=== PATIENT | female | born 1985 | race Caucasian/White ===

== ENCOUNTER 2023-11-28 06:26 | Outpatient (OUT) | payer OTHER, SELFPAY ==
[2023-11-28 07:59] LABS: Thyroid Stimulating Hormone 1.823 uIU/mL (0.358-3.740)
[2023-11-28 09:32] LABS: Free T4 1.04 ng/dL (0.76-1.46)
[2023-11-29 08:12] LABS: DHEA-Sulfate 98.2 ug/dL (57.3-279.2); FSH 7.8 mIU/mL (.); Progesterone 0.3 ng/mL (.); Prolactin 13.9 ng/mL (4.8-33.4)
[2023-12-09 00:07] LABS: Free Testosterone(Direct) 0.6 pg/mL (0.0-4.2); Testosterone 20 ng/dL (8-60)
== END 2023-11-28 06:27 | disposition home or self-care (01) ==
LOC: LAB 06:29
PROVIDERS: PCP Family Medicine
DX: R61 Generalized hyperhidrosis (principal); R68.82 Decreased libido
CPT/HCPCS: 36415; 82306; 82533; 82627; 82670; 83001; 84144; 84146; 84402; 84403; 84439; 84443

== ENCOUNTER 2023-12-22 13:25 | Outpatient (OUT) | payer OTHER, SELFPAY ==
--- NOTE | 2023-12-22 13:31 | XR_ITS ---
[address] [address] Patient Name: HALI FRASER MRN: [id number] date: 1985 Sex: F Assigned Patient Location: [facility] Current Patient Location: Accession/Order Number: [id number] Exam Date: 12/22/2023 13:38 Report Date: 12/23/2023 06:55 At the request of: TONY FRANCO Procedure: XR femur LT 2V PROCEDURE: XR femur LT 2V COMPARISON: None. HISTORY: Left Thigh Pain M79.652 FINDINGS: BONES:No fracture, acute abnormality, or significant arthropathy. SOFT TISSUES:Negative. No visible soft tissue swelling. EFFUSION:None visible. OTHER: Negative. XR/XR femur LT 2V IMPRESSION: No acute radiographic abnormality Electronically authenticated by: SUDEEP CR Date: 12/23/2023 06:55
== END 2023-12-22 13:26 | disposition home or self-care (01) ==
LOC: RAD 13:26
PROVIDERS: PCP Family Medicine; Visit Provider Physician Assistant
DX: M79.652 Pain in left thigh (principal)
CPT/HCPCS: 73552

== ENCOUNTER 2024-08-04 09:00 | Outpatient (OUT) | payer OTHER, SELFPAY ==
--- NOTE | 2024-08-04 09:00 | RT_ITS ---
[facility] Test Date: 2024-08-04 Pat Name: HALI FRASER Department: Room: - Gender: Female Fitness Teacher: Jessica Beltran RRT : 1985 Requested By: [id number] Order Number: [id number] Reading MD: Raffi Gilliland Interpretive Statements Pulmonary function testing was completed according to ATS criteria. Findings were considered accurate and reproducible. No bronchodilator was administered due to normal spirometric values. Spirometry: -FEV1/FVC: Normal @ 84% -FEV1: Normal @ 85% -FVC: Normal @ 83% Lung volumes by plethysmography: -RV: Increased @ 133% -TLC: Normal @ 100% Diffusion capacity: -DLCO: Normal @ 92% when corrected for Hb 12.9g/dL Flow-volume loop: -Normal shape Impressions: -Essentially normal PFT. If asthma remains in the differential, may consider methacholine challenge testing. Clinical correlation required. Electronically Signed On 08-04-2024 17:43:12 EDT by Raffi Gilliland
--- OUTSIDE RECORDS SUMMARY | 2024-08-04 09:03 | XMS_ITS | CCD ---
Author Organization [facility] Care Team Providers Care Tool Room Attendant Name Role Phone Jenni Blakely Unavailable Unavailable Jenni Blakely Unavailable Unavailable HEMEYER, DANIELA Unavailable Unavailable ROSS, ESPERANZA MARISELA Attending Unavailable ROSS, ESPERANZA MARISELA Admitting Unavailable ROSS, ESPERANZA MARISELA Primary Care Unavailable ESPERANZA SEYMOUR Consulting Unavailable DEVAUGHN, DR PIÑA Admitting Unavailable DEVAUGHN, DR PIÑA Consulting Unavailable DEVAUGHN, DR PIÑA Attending Unavailable ROSS, ESPERANZA MARISELA Primary Care Unavailable CURLY GRIGSBY Attending Unavailable HEMMER, TONY Garcia Attending Unavailable LOPEZ, CHARLOTTE Attending Unavailable HEMMER, TONY Garcia Referring Unavailable GALE, MICHELLE Attending Unavailable HEMMER, TONY Garcia Referring Unavailable TATTERSMENDOZA SILVA Attending Unavailable HEMMER, TONY Garcia Referring Unavailable GALE, MICHELLE Attending Unavailable HEMMER, TONY Garcia Referring Unavailable LOPEZ, CHARLOTTE Attending Unavailable HEMMER, TONY Garcia Referring Unavailable LOPEZ, CHARLOTTE Attending Unavailable HEMMER, TONY Garcia Referring Unavailable GALE, MICHELLE Attending Unavailable HEMMER, TONY Garcia Referring Unavailable HEMMER, TONY Garcia Attending Unavailable HEMMER, TONY Garcia Attending Unavailable Problems Active Problems Problem Classification Problem Date Documented Da te Episodic/Chronic Unclassified (3 sources) CONTACT W/AND (SUSP) EXPOS COVID-19; Translations: [CONTACT W/AND (SUSP) EXPOS COVID-19] Onset: 09-15-2021 Past or Other Problems Problem Classification Problem Date Documented Da te Episodic/Chronic Unclassified (1 source) CONTACT W/AND (SUSP) EXPOS COVID-19; Translations: [CONTACT W/AND (SUSP) EXPOS COVID-19] Onset: 09-11-2021 Results Test Name Value Interpretation Reference Range Facil ity [facility] CBC AUTO DIFFon 06-13-2022 BASO # 0.0 103/ul Normal 0.0-0.1 [facility] Comment on above: Performed By: #### [facility] #### [facility] [address] [place] [address] Dr. Sarah Monge Basophils/100 WBC (Bld) 1.1 % Normal 0.2-2.0 [facility] Comment on above: Performed By: #### H FPFCBC #### [facility] [address] [place] [address] Dr. Sarah Monge EO # 0.2 103/ul Normal 0.0-0.7 [facility] Comment on above: Performed By: #### H FPFCBC #### [facility] [address] [place] [address] Dr. Sarah Monge Eosinophils/100 WBC (Bld) 4.0 % Normal 0.9-7.0 [facility] Comment on above: Performed By: #### H FPFCBC #### [facility] [address] [place] [address] Dr. Sarah Monge Erythrocyte distribution width (RBC) [Ratio] 12.4 % Normal 11.0-15.0 [facility] Comment on above: Performed By: #### H FPFCBC #### [facility] [address] [place] [address] Dr. Sarah Monge Hematocrit (Bld) [Volume fraction] 39.0 % Normal 36.0-48.0 [facility] Comment on above: Performed By: #### H FPFCBC #### [facility] [address] [place] [address] Dr. Sarah Monge Hemoglobin (Bld) [Mass/Vol] 12.8 g/dL Normal 12.0-16.0 [facility] Comment on above: Performed By: #### H FPFCBC #### [facility] [address] [place] [address] Dr. Sarah Monge IG # 0.00 10e3/ul Normal 0.00-0.03 [facility] Comment on above: Performed By: #### H FPFCBC #### [facility] [address] [place] [address] Dr. Sarah Monge IG % 0.0 % Normal 0.0-0.5 [facility] Comment on above: Performed By: #### H FPFCBC #### [facility] [address] [place] [address] Dr. Sarah Monge LYMPH # 1.1 103/ul Critically low 1.2-3.8 [facility] Comment on above: Performed By: #### H FPFCBC #### [facility] [address] [place] [address] Dr. Sarah Monge Lymphocytes/100 WBC (Bld) 29.6 % Normal 20.5-60.0 [facility] Comment on above: Performed By: #### H FPFCBC #### [facility] [address] [place] [address] Dr. Sarah Monge MCH (RBC) [Entitic mass] 30.2 pg Normal 26.7-34.0 [facility] Comment on above: Performed By: #### H FPFCBC #### [facility] [address] [place] [address] Dr. Sarah Monge MCHC (RBC) [Mass/Vol] 32.8 g/dL Normal 29.9-35.2 [facility] Comment on above: Performed By: #### H FPFCBC #### [facility] [address] [place] [address] Dr. Sarah Monge MCV (RBC) [Entitic vol] 92.0 fL Normal 81.0-99.0 [facility] Comment on above: Performed By: #### H FPFCBC #### [facility] [address] [place] [address] Dr. Sarah Monge MONO # 0.3 103/ul Normal 0.3-0.8 [facility] Comment on above: Performed By: #### H FPFCBC #### [facility] [address] [place] [address] Dr. Sarah Monge Monocytes/100 WBC (Bld) 8.5 % Normal 1.7-12.0 [facility] Comment on above: Performed By: #### H FPFCBC #### [facility] [address] [place] [address] Dr. Sarah Monge NEUT # 2.2 103/ul Normal 1.4-6.5 [facility] Comment on above: Performed By: #### H FPFCBC #### [facility] [address] [place] [address] Dr. Sarah Monge Neutrophils/100 WBC (Bld) 56.8 % Normal 43.0-75.0 [facility] Comment on above: Performed By: #### H FPFCBC #### [facility] [address] [place] [address] Dr. Sarah Monge Platelet mean volume (Bld) [Entitic vol] 12.2 fL Normal 9.5-13.5 [facility] Comment on above: Performed By: #### H FPFCBC #### [facility] [address] [place] [address] Dr. Sarah Monge PLT 208 103/ul Normal 150-450 [facility] Comment on above: Performed By: #### H FPFCBC #### [facility] [address] [place] [address] Dr. Sarah Monge RBC 4.24 106/ul Normal 4.20-5.40 [facility] Comment on above: Performed By: #### H FPFCBC #### [facility] [address] [place] [address] Dr. Sarah Monge WBC 3.8 103/ul Critically low 4.0-11.0 [facility] Comment on above: Performed By: #### H FPFCBC #### [facility] [address] [place] [address] Dr. Sarah Monge [facility] PROFILEon 022 Albumin [Mass/Vol] 4.2 g/dL Normal 3.4-5.0 [facility] Comment on above: Performed By: #### H FPF #### [facility] [address] [place] [address] Dr. Sarah Monge Albumin/Globulin [Mass ratio] 1.3 {ratio} Normal [facility] Comment on above: Performed By: #### H FPF #### [facility] [address] [place] [address] Dr. Sarah Monge ALP [Catalytic activity/Vol] 60 U/L Normal 46-116 [facility] Comment on above: Performed By: #### H FPF #### [facility] [address] [place] [address] Dr. Sarah Monge ALT [Catalytic activity/Vol] 29 U/L Normal 14-59 [facility] Comment on above: Performed By: #### H FPF #### [facility] [address] [address] [address] Sarah Monge AST [Catalytic activity/Vol] 21 U/L Normal 15-37 [facility] Comment on above: Performed By: #### H FPF #### [facility] [address] [place] [address] Dr. Sarah Monge Bilirubin [Mass/Vol] 0.5 mg/dL Normal 0.2-1.0 [facility] Comment on above: Performed By: #### H FPF #### [facility] [address] [place] [address] Dr. Sarah Monge Calcium [Mass/Vol] 8.6 mg/dL Normal 8.5-10.1 [facility] Comment on above: Performed By: #### H FPF #### [facility] [address] [place] [address] Dr. Sarah Monge Chloride [Moles/Vol] 102 mmol/L Normal 98-107 [facility] Comment on above: Performed By: #### H FPF #### [facility] [address] [place] [address] Dr. Sarah Monge CHOL-HDL RATIO NORM SEE BELOW Normal [facility] Comment on above: Result Comment: 3.3 - 4.4 LOW RISK 4.4 - 7.1 AVERAGE RISK 7.1 - 11.0 MODERATE RISK >11.0 HIGH RISK Performed By: #### H FPF #### [facility] [address] [place] [address] Dr. Sarah Monge Cholesterol [Mass/Vol] 168 mg/dL Normal <=200 [facility] Comment on above: Performed By: #### H FPF #### [facility] [address] [address] [address] Sarah Monge Cholesterol in HDL [Mass/Vol] 77 mg/dL Critically high 40-60 [facility] Comment on above: Performed By: #### H FPF #### [facility] [address] [address] [address] Sarah Monge Cholesterol in LDL [Mass/Vol] 84.0 mg/dL Normal [facility] Comment on above: Performed By: #### H FPF #### [facility] [address] [address] [address] Sarah Monge Cholesterol.total/C holesterol in HDL [Mass ratio] 2.2 {ratio} Normal [facility] Comment on above: Performed By: #### H FPF #### [facility] [address] [address] [address] Sarah Monge CO2 [Moles/Vol] 29.1 mmol/L Normal 21.0-32.0 [facility] Comment on above: Performed By: #### H FPF #### [facility] [address] [place] [address] Dr. Sarah Monge Creatinine [Mass/Vol] 0.63 mg/dL Normal 0.55-1.02 [facility] Comment on above: Performed By: #### H FPF #### [facility] [address] [address] [address] Sarah Monge Globulin (S) [Mass/Vol] 3.2 g/dL Normal [facility] Comment on above: Performed By: #### H FPF #### [facility] [address] [address] [address] Sarah Monge Glucose [Mass/Vol] 81 mg/dL Normal 74-106 [facility] Comment on above: Performed By: #### H FPF #### [facility] [address] [address] [address] Sarah Monge HDL NORMAL > or = 60 mg/dl - LO W CARDIOVASCULAR RISK <40 mg/dl - HIGH CARDIOVASCULAR RISK Normal [facility] Comment on above: Performed By: #### H FPF #### [facility] [address] [address] [address] Sarah Monge LDL CALC NORMAL SEE BELOW Normal [facility] Comment on above: Result Comment: <100 mg/dl OPTIMAL 100 - 129 mg/dl NEAR OR ABOVE OPTIMAL 130 - 159 mg/dl BORDERLINE HIGH 160 - 189 mg/dl HIGH >190 mg/dl VERY HIGH Performed By: #### H FPF #### [facility] [address] [address] [address] Sarah Monge Potassium [Moles/Vol] 3.5 mmol/L Normal 3.5-5.1 [facility] Comment on above: Performed By: #### H FPF #### [facility] [address] [address] [address] Sarah Monge Protein [Mass/Vol] 7.4 g/dL Normal 6.4-8.2 [facility] Comment on above: Performed By: #### H FPF #### [facility] [address] [address] [address] Sarah Monge Sodium [Moles/Vol] 140 mmol/L Normal 136-145 [facility] Comment on above: Performed By: #### H FPF #### [facility] [address] [address] [address] Sarah Monge Triglyceride [Mass/Vol] 35 mg/dL Normal <=150 [facility] Comment on above: Performed By: #### H FPF #### [facility] [address] [address] [address] Sarah Monge TSH 1.980 uIU/mL Normal 0.358-3.740 [facility] Comment on above: Performed By: #### H FPF #### [facility] [address] [address] [address] Sarah Monge Urea nitrogen [Mass/Vol] 15.0 mg/dL Normal 7.0-18.0 [facility] Comment on above: Performed By: #### H FPF #### [facility] [address] [place] [address] Dr. Sarah Monge Urea nitrogen/Creatinine [Mass ratio] 23.8 mg/mg Normal [facility] Comment on above: Performed By: #### H FPF #### [facility] [address] [place], [place] [address] Dr. Sarah Monge VLDL CALC 7.0 mg/dL Normal [facility] Comment on above: Performed By: #### H FPF #### [facility] [address] [place], [place] [address] Dr. Sarah Monge [facility] SARS-CoV-2 (COVID-19) RNA AV+probe Ql (Unsp spec) Not detected Normal NOT DETECTED [facility] Comment on above: Result Comment: This test is not yet approved or cleared by the [place] FDA. When there are no FDA-approved or cleared tests available, and other criteria are met, FDA can make tests available under an emergency access mechanism called an Emergency Use Authorization (EUA). The EUA for this test is supported by the Speech Therapist Technician of Health and Human Service's (HHS's) declaration that circumstances exist to justify the emergency use of in vitro diagnostics for the detection and/or diagnosis of the virus that causes COVID-19. This EUA will remain in effect (meaning this test can be used) for the duration of the COVID-19 declaration justifying emergency of IVDs, unless it is terminated or revoked by FDA (after which the test may no longer be used). When diagnostic testing is negative, the possibility of a false negative should be considered in the context of a patient's recent exposures and the presence of clinical signs and symptoms consistent with SARS-CoV-2. Performed By: #### C VDTBH #### [facility] [id number] Sarah Monge Encounters Encounter Date Encounter Type Care Provider Facility Start: 08-02-2024 End: 08-02-2024 ambulatory TONY FRANCO Not Available Start: 05-19-2024 End: 05-19-2024 ambulatory TONY FRANCO Not Available Start: 01-19-2024 End: 01-20-2024 ambulatory CHARLOTTE LOPEZ Not Available Start: 01-14-2024 End: 01-27-2024 ambulatory MICHELLE BEASLEY Not Available Start: 01-05-2024 End: 01-08-2024 ambulatory CHARLOTTE LOPEZ Not Available Start: 12-31-2023 End: 01-01-2024 ambulatory MICHELLE BEASLEY Not Available Start: 12-29-2023 End: 12-29-2023 ambulatory MENDOZA SANDERS Not Available Start: 12-25-2023 End: 12-25-2023 ambulatory MICHELLE BEASLEY Not Available Start: 12-23-2023 End: 12-23-2023 ambulatory CHARLOTTE LOPEZ Not Available Start: 12-22-2023 End: 12-22-2023 ambulatory TONY FRANCO Not Available Start: 12-15-2023 End: 12-15-2023 ambulatory CURLY GRIGSBY Not Available Start: 11-27-2023 End: 11-27-2023 ambulatory CURLY GRIGSBY Not Available Start: 06-13-2022 End: 06-14-[address] AYANA CANTOR Facility:[facility] Start: 09-11-2021 End: 09-11-2021 ambulatory ESPERANZA SEYMOUR Facility:[facility] Start: 04-10-2017 End: 04-11-2017 Ambulatory Jenni Reddy Facility:[facility] Payers Date Payer Category Payer Unknown [id number] 2.16.84 [id number] 1985 Unknown [id number] 2.16.84 [id number] 1985 Unknown [id number] 2.16.84 [id number] 1985 Unknown [id number] 2.16.84 [id number] 1985 Unknown [id number] 2.16.84 0.1.752549.3.579.2.1258 1985 Unknown [id number] 2.16.84 0.1.233567.3.579.2.9 1985 Unknown [id number] 2.16.84 0.1.962295.3.579.2.9 1986 Unknown [id number] 2.16.84 0.1.351083.3.579.2.1259 1985 Unknown [id number] 2.16.84 0.1.957397.3.579.2.9 1985 Unknown [id number] 2.16.84 0.1.410817.3.579.2.9 1985 Unknown [id number] 2.16.84 0.1.548987.3.579.2.1258 1985 Unknown [id number] 2.16.84 0.1.364162.3.579.2.1258 1985 Unknown [id number] 2.16.84 0.1.057791.3.579.2.9 1958 Self-pay [id number] 1958 Unknown [id number] Unknown [id number] 2.16.84 [id number] Summary Purpose Family History No Family History Records FoundNo Family History Records FoundNo Family History Records Found Advance Directives No Advanced Directives Records FoundNo Advanced Directives Records FoundNo Advanced Directives Records Found Additional Source Comments INFORMATION SOURCE (unrecogn ized section and content) DATE CREATED AUTHOR 04/22/2018 [facility] DATE CREATED AUTHOR AUTHOR'S ORGANIZ ATION 06/19/2022 [facility] DATE CREATED AUTHOR AUTHOR'S ORGANIZ ATION 08/04/2024 [facility] FOR RECORDS PERTAINING TO PATIENTS WHO ARE OR HAVE BEEN ENROLLED IN A CHEMICAL DEPENDENCY/SUBSTANCEABUSE PROGRAM, SOME INFORMATION MAY BE OMITTED. This clinical summary was aggregated from multiple sources. Caution should be exercised in using it in the provision of clinical care. This summary normalizes information from multiple sources, and as a consequence, information in this document may materially change the coding, format and clinical context of patient data. In addition, data may be omitted in some cases. CLINICAL DECISIONS SHOULD BE BASED ON THE PRIMARY CLINICAL RECORDS. [facility] [employer] provides no warranty or guarantee of the accuracy or completeness of information in this document.
[2024-08-04 09:12] LABS: Hemoglobin 12.9 g/dL (12.0-16.0)
== END 2024-08-04 09:01 | disposition home or self-care (01) ==
LOC: CARD 09:00
PROVIDERS: PCP Family Medicine; Visit Provider Physician Assistant
DX: R06.09 Other forms of dyspnea (principal); R06.02 Shortness of breath; R07.9 Chest pain, unspecified; R00.2 Palpitations
CPT/HCPCS: 36415; 85018; 93246; 94010; 94726; 94729